=== PATIENT | female | born 1975 | race Caucasian/White ===

== ENCOUNTER 2019-12-21 06:43 | Emergency (ER) | payer OTHER ==
[2019-12-21 06:59] VITALS: BP 115/76; PULSE 88; TEMP 98.2; BMI 23.3
[2019-12-21] MEDS ORDERED: DIPHTH,PERTUSS(ACELL),TET 0.5 ML DISP.SYRIN IM ONE ×2 (08:11→08:31)
[2019-12-21] MEDS ORDERED: ACETAMINOPHEN 325 MG TABLET (FP) PO ONE (08:11)
[2019-12-21] MEDS ORDERED: ACETAMINOPHEN 325 MG TABLET (FP) ONE (08:31)
== END 2019-12-21 09:02 | disposition home or self-care (01) ==
LOC: JER 06:43
PROC: 0HQ1XZZ Repair Face Skin, External Approach (ICD-10-PCS; principal; 2019-12-21)
PROC: 3E0234Z Introduction of Serum, Toxoid and Vaccine into Muscle, Percutaneous Approach (ICD-10-PCS; principal; 2019-12-21)
DX: S01.81XA Laceration without foreign body of other part of head, initial encounter (principal); W22.8XXA Striking against or struck by other objects, initial encounter
CPT/HCPCS: 90715; 99283-25